=== PATIENT | female | born 1960 | race American Indian/Alaskan Native ===

== ENCOUNTER 2021-01-20 12:50 | Emergency (ER) | payer SELFPAY ==
[2021-01-20 13:18] VITALS: BP 132/81
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
== END 2021-01-20 14:43 | disposition home or self-care (01) ==
LOC: ED 12:50
DX: M54.2 Cervicalgia (principal); M54.50 Low back pain, unspecified; M25.511 Pain in right shoulder; R20.2 Paresthesia of skin; V87.7XXA Person injured in collision between other specified motor vehicles (traffic), initial encounter; Y93.89 Activity, other specified; Y99.8 Other external cause status; Y92.89 Other specified places as the place of occurrence of the external cause
CPT/HCPCS: 72040; 72070; 72100; 99283